=== PATIENT | female | born 1970 | race Caucasian/White ===

== ENCOUNTER 2023-06-03 05:53 | Inpatient (IN) | payer OTHER ==
[2023-05-30 14:24] LABS: HEMATOCRIT 44.7 % (36.0-45.00); HEMOGLOBIN 15.3 g/dL (12.0-15.00); MEAN CELL VOLUME 94.5 fL (80.00-100.00); MEAN CORPUSCULAR HEMOGLOBIN 32.3 pg (27.00-32.0); MEAN CORPUSCULAR HGB CONC 34.2 g/dl (32.0-36.0); PLATELET COUNT 226 K/uL (150-450); RED BLOOD COUNT 4.73 M/uL (4.00-6.00); RED CELL DISTRIBUTION WIDTH 12.8 % (11.5-14.5)
[2023-05-30 14:25] LABS: PH,URINE 5.5 (5.0-8.0); URINE APPEARANCE Clear; URINE BILIRRUBIN Negative (NEGATIVE); URINE BLOOD Negative; URINE COLOR Yellow; URINE GLUCOSE Negative (NEGATIVE); URINE LEUKOCYTE Small; URINE NITRATE Negative; URINE PROTEIN Negative (NEGATIVE); URINE UROBILINOGEN 0.2 E.U./dl
[2023-05-30 14:29] LABS: URINE BACTERIA 264.5 uL (0.0-1933); URINE EPITHELIAL CELLS 17.7 uL (0.0-38.8); URINE WBC 23.3 uL (0.0-23.2)
[2023-05-30 14:35] LABS: URINE RBC 1.5 uL (0.0-20.8)
[2023-05-30 14:49] LABS: ALBUMIN 4.1 gm/dL (3.4-5.0); BILIRUBIN TOTAL 0.42 mg/dL (0.3-1.2); CREATININE SERUM 0.66 mg/dL (0.55-1.02); GFR 93.33; GLOBULINA 3.3 G/DL (2.4-3.5); POTASSIUM 4.73 mEq/L (3.5-5.1); TOTAL PROTEIN 7.4 gm/dL (6.4-8.2)
[2023-05-30 15:06] LABS: INR 0.99; PARTIAL THROMBOPLASTIN TIME 27.2 SECONDS (22.0-34.0); PROTHROMBIN TIME 10.4 SECONDS (9.0-11.5)
[~2023-06-03] VITALS: Ht 152.4 cm; Wt 49.9 kg
[2023-06-04 07:47] LABS: HEMOGLOBIN 13.4 g/dL (12.0-15.00); MEAN CELL VOLUME 92.1 fL (80.00-100.00); MEAN CORPUSCULAR HEMOGLOBIN 31.7 pg (27.00-32.0); MEAN CORPUSCULAR HGB CONC 34.4 g/dl (32.0-36.0); PLATELET COUNT 149 K/uL (150-450); RED BLOOD COUNT 4.24 M/uL (4.00-6.00); RED CELL DISTRIBUTION WIDTH 12.6 % (11.5-14.5)
[2023-06-04 08:38] LABS: ALBUMIN 2.9 gm/dL (3.4-5.0); CALCIUM 8.7 mg/dL (8.5-10.1); CREATININE SERUM 0.66 mg/dL (0.55-1.02); GFR 93.33; MAGNESIUM 1.7 mg/dL (1.8-2.4); PHOSPHOROUS 3.6 mg/dL (2.5-4.9); POTASSIUM 4.45 mEq/L (3.5-5.1)
[2023-06-05 08:30] LABS: HEMATOCRIT 35.5 % (36.0-45.00); HEMOGLOBIN 12.1 g/dL (12.0-15.00); MEAN CELL VOLUME 93.6 fL (80.00-100.00); MEAN CORPUSCULAR HEMOGLOBIN 31.9 pg (27.00-32.0); MEAN CORPUSCULAR HGB CONC 34.1 g/dl (32.0-36.0); PLATELET COUNT 134 K/uL (150-450); RED BLOOD COUNT 3.79 M/uL (4.00-6.00); RED CELL DISTRIBUTION WIDTH 12.3 % (11.5-14.5)
[2023-06-05 08:50] LABS: CALCIUM 8.3 mg/dL (8.5-10.1); CREATININE SERUM 0.52 mg/dL (0.55-1.02); GFR 122.88; PHOSPHOROUS 2.7 mg/dL (2.5-4.9); POTASSIUM 4.1 mEq/L (3.5-5.1)
[2023-06-06 07:40] LABS: HEMATOCRIT 36.1 % (36.0-45.00); HEMOGLOBIN 12.1 g/dL (12.0-15.00); MEAN CELL VOLUME 94.8 fL (80.00-100.00); MEAN CORPUSCULAR HEMOGLOBIN 31.9 pg (27.00-32.0); MEAN CORPUSCULAR HGB CONC 33.6 g/dl (32.0-36.0); PLATELET COUNT 137 K/uL (150-450); RED CELL DISTRIBUTION WIDTH 12.3 % (11.5-14.5)
[2023-06-06 08:08] LABS: CALCIUM 8.7 mg/dL (8.5-10.1); CREATININE SERUM 0.5 mg/dL (0.55-1.02); GFR 128.57; PHOSPHOROUS 3.5 mg/dL (2.5-4.9); POTASSIUM 4.48 mEq/L (3.5-5.1)
[2023-06-06 09:19] LABS: MANUAL PLATELET COUNT 214
[2023-06-08] MEDS ORDERED: MIRALAX510 GM PO (15:37)
== END 2023-06-08 20:25 | disposition home or self-care (01) | DRG 330 ==
LOC: O/R 05:53 → SURH 05:53 → EDSTATUS 08:24 → SURH 08:25 → CIR.AMB 13:17 → SURH 13:44
PROVIDERS: Internal Medicine Geriatric Medicine; ADMIT Surgery; ATTEND Surgery
PROC: 07BB4ZZ Excision of Mesenteric Lymphatic, Percutaneous Endoscopic Approach (ICD-10-PCS; 2023-06-03)
PROC: 0DJD8ZZ Inspection of Lower Intestinal Tract, Via Natural or Artificial Opening Endoscopic (ICD-10-PCS; 2023-06-03)
PROC: 3E0F7SF Introduction of Other Gas into Respiratory Tract, Via Natural or Artificial Opening (ICD-10-PCS; 2023-06-03)
PROC: 0DTG4ZZ Resection of Left Large Intestine, Percutaneous Endoscopic Approach (ICD-10-PCS; principal; 2023-06-03 15:15)
PROC: 4A12X4Z Monitoring of Cardiac Electrical Activity, External Approach (ICD-10-PCS; 2023-06-05)
DX: C18.6 Malignant neoplasm of descending colon (principal); C18.5 Malignant neoplasm of splenic flexure; K62.5 Hemorrhage of anus and rectum; R59.0 Localized enlarged lymph nodes; F41.9 Anxiety disorder, unspecified; Z71.51 Drug abuse counseling and surveillance of drug abuser

== ENCOUNTER 2025-06-16 02:09 | Emergency (ER) | payer OTHER ==
[~2025-06-16] VITALS: Ht 154.9 cm; Wt 57.6 kg
[~2025-06-16 02:09] MED LIST: MIRALAX510 GM PO
[2025-06-16] MEDS ORDERED: MORPHINE SULFATE 4 MG/ML CARTRIDGE IV STA ×2 (03:54→07:25)
[2025-06-16] MEDS ORDERED: 0.9 % SODIUM CHLORIDE 1,000 ML IV ONE (07:45)
[2025-06-16] MEDS ORDERED: ONDANSETRON HCL 4 MG in DEXTROSE 5 % IN WATER 50 ML IV PRN (07:45)
[2025-06-16] MEDS ORDERED: MORPHINE SULFATE 4 MG/ML VIAL IV PRN (07:45)
[2025-06-16 07:57] LABS: BASO % 0.2 % (0.1-1.2); EOS # 0.05 (0.04-0.54); EOS % 0.5 % (0.7-7.0); LYMPH # 2.48 (1.18-3.74); LYMPH % 22.5 % (19.3-53.1); MEAN PLATELET VOLUME 12.80 fl (9.4-12.4); MONO # 0.55 (0.24-0.82); MONO % 5.0 % (4.7-12.5); NEUT # 7.86 (1.56-6.13); NEUT % 71.3 % (34.0-71.1); RED CELL DISTRIBUTION WIDTH 12.2 % (11.6-14.4)
[2025-06-16] MEDS ORDERED: FAMOTIDINE/PF 20 MG/2 ML VIAL ONE (08:21)
[2025-06-16 08:26] LABS: INR 0.95
[2025-06-16 08:30] LABS: BUN CREA RATIO 19.0 (7.0-25.0); CREATININE SERUM 0.78 mg/dL (0.55-1.02); GFR 76.4; GLUCOSE FASTING 108.0 mg/dL (65-100); OSMOLALITY SERUM 286.0 MOSM/KG (275-295)
[2025-06-16 09:00] LABS: COL EPI 96 SECONDS (82-175)
[2025-06-16] MEDS ORDERED: FAMOTIDINE/PF 20 MG/2 ML VIAL IV SCH (09:00)
[2025-06-16 10:10] LABS: URINE APPEARANCE Clear; URINE BILIRRUBIN Negative (NEGATIVE); URINE BLOOD Negative; URINE COLOR Yellow; URINE GLUCOSE Negative (NEGATIVE); URINE KETONE Trace (NEGATIVE); URINE LEUKOCYTE Trace; URINE NITRATE Negative; URINE PROTEIN Negative (NEGATIVE); URINE UROBILINOGEN 0.2 E.U./dl
[2025-06-16 10:16] LABS: URINE BACTERIA 463.1 uL (0.0-1933); URINE EPITHELIAL CELLS 12.8 uL (0.0-38.8); URINE WBC 10.7 uL (0.0-23.2)
[2025-06-16] MEDS ORDERED: TRAMADOL HCL E100 M1 PO (10:37)
[2025-06-16 10:42] LABS: URINE CAST 0.00 uL (0.0-1.40); URINE RBC 0.5 uL (0.0-20.8)
[2025-06-16] MEDS ORDERED: TRAMADOL HCL 50 MG TABLET PO ONE (12:00)
== END 2025-06-16 12:08 | disposition home or self-care (01) ==
LOC: ER 02:09
PROVIDERS: General Practice
DX: M25.571 Pain in right ankle and joints of right foot (principal); M79.604 Pain in right leg; Z88.6 Allergy status to analgesic agent; Z88.8 Allergy status to other drugs, medicaments and biological substances

== ENCOUNTER 2025-06-18 09:50 | Emergency (ER) | payer OTHER ==
[~2025-06-18] VITALS: Ht 152.4 cm; Wt 58.1 kg
[~2025-06-18 09:50] MED LIST changes: +TRAMADOL HCL E100 M1 PO
[2025-06-18] MEDS ORDERED: FAMOTIDINE/PF 20 MG/2 ML VIAL IV ONE (10:15)
[2025-06-18] MEDS ORDERED: ONDANSETRON HCL 4 MG in DEXTROSE 5 % IN WATER 50 ML IV PRN (10:15)
[2025-06-18] MEDS ORDERED: MORPHINE SULFATE 4 MG/ML VIAL IV PRN (10:15)
[2025-06-18] MEDS ORDERED: 0.9 % SODIUM CHLORIDE 1,000 ML IV SCH (10:15)
[2025-06-18] MEDS ORDERED: ONDANSETRON HCL 2 MG/ML VIAL ONE (10:35)
[2025-06-18] MEDS ORDERED: FAMOTIDINE/PF 20 MG/2 ML VIAL ONE ×2 (10:35→10:38)
[2025-06-18 11:20] LABS: BASO % 0.2 % (0.1-1.2); EOS # 0.20 (0.04-0.54); EOS % 2.5 % (0.7-7.0); LYMPH # 2.53 (1.18-3.74); LYMPH % 31.4 % (19.3-53.1); MEAN PLATELET VOLUME 12.90 fl (9.4-12.4); MONO # 0.53 (0.24-0.82); MONO % 6.6 % (4.7-12.5); NEUT # 4.77 (1.56-6.13); NEUT % 59.1 % (34.0-71.1); RED CELL DISTRIBUTION WIDTH 11.9 % (11.6-14.4)
[2025-06-18 11:35] LABS: URINE APPEARANCE Clear; URINE BACTERIA 185.2 uL (0.0-1933); URINE BILIRRUBIN Negative (NEGATIVE); URINE BLOOD Negative; URINE COLOR Yellow; URINE EPITHELIAL CELLS 16.0 uL (0.0-38.8); URINE GLUCOSE Negative (NEGATIVE); URINE KETONE Trace (NEGATIVE); URINE LEUKOCYTE Trace; URINE NITRATE Negative; URINE PROTEIN Negative (NEGATIVE); URINE UROBILINOGEN 0.2 E.U./dl; URINE WBC 11.3 uL (0.0-23.2)
[2025-06-18 11:45] LABS: ALT/SGPT 23.0 U/L (12-78); AST/SGOT 16.0 U/L (15-37); BILIRUBIN TOTAL 0.81 mg/dL (0.3-1.2); BUN CREA RATIO 18.0 (7.0-25.0); CREATININE SERUM 0.67 mg/dL (0.55-1.02); GFR 91.05; GLOBULINA 3.3 G/DL (2.4-3.5); GLUCOSE FASTING 102.0 mg/dL (65-100); OSMOLALITY SERUM 281.0 MOSM/KG (275-295)
[2025-06-18 11:49] LABS: INR 0.98
[2025-06-18 11:52] LABS: URINE CAST 0.00 uL (0.0-1.40); URINE RBC 1.9 uL (0.0-20.8)
== END 2025-06-18 13:08 | disposition home or self-care (01) ==
LOC: ER 09:51
PROVIDERS: General Practice
DX: S82.891A Other fracture of right lower leg, initial encounter for closed fracture (principal); X58.XXXA Exposure to other specified factors, initial encounter; Y93.89 Activity, other specified; Y92.89 Other specified places as the place of occurrence of the external cause; Y99.8 Other external cause status; Z88.6 Allergy status to analgesic agent; Z88.8 Allergy status to other drugs, medicaments and biological substances
CPT/HCPCS: 36415; 71045; 73610; 93005; 96365; 96366; 99283; J2270; J2405; J3490; J7030

== ENCOUNTER 2025-06-20 08:33 | Inpatient (IN) | payer OTHER ==
[~2025-06-20] VITALS: Ht 165.1 cm; Wt 81.6 kg
--- NOTE | 2025-06-20 08:47 | NUR ---
PACIENTE ALERTA Y ORIENTADA X 3 REFIERE CAIDA EL SABADO EN LA NOCHE. PRESENTA REFERIDO DEL DR GRUBBS PARA OPERACION POR FRACTURA EN TOBILLO DERECHO. SE MIDEN SIGNOS VITALES Y SE UBICA
[2025-06-20] MEDS ORDERED: FAMOTIDINE/PF 20 MG/2 ML VIAL IV STA (10:18)
[2025-06-20] MEDS ORDERED: 0.9 % SODIUM CHLORIDE 1,000 ML IV STA (10:18)
[2025-06-20] MEDS ORDERED: ONDANSETRON HCL 2 MG/ML VIAL IV STA (10:18)
[2025-06-20] MEDS ORDERED: MORPHINE SULFATE 4 MG/ML VIAL IV ONE (10:30)
[2025-06-20] MEDS ORDERED: ENOXAPARIN SODIUM 40 MG/0.4 ML SYRINGE SUBCUTANEO SCH (10:42)
[2025-06-20] MEDS ORDERED: ENOXAPARIN SODIUM 40 MG/0.4 ML SYRINGE SUBCUTANEO ONE (10:42)
[2025-06-20] MEDS ORDERED: ONDANSETRON HCL 2 MG/ML VIAL IV PRN (10:45)
[2025-06-20] MEDS ORDERED: MORPHINE SULFATE 4 MG/ML CARTRIDGE IV PRN (10:45)
[2025-06-20] MEDS ORDERED: ONDANSETRON HCL 2 MG/ML VIAL ONE (11:55)
[2025-06-20] MEDS ORDERED: FAMOTIDINE/PF 20 MG/2 ML VIAL ONE (11:55)
--- NOTE | 2025-06-20 12:28 | NUR ---
SE EDUCA A PACIENTE SOBRE TRATAMIENTO MEDICO EL CUAL REFIERE ENTENDER, SE REALIZA ADMINISTRACION DE MEDICAMENTOS ANNABEL ORDEN MEDICA Y BAJO MEDIDAS ASEPTICAS. PENDIENTE PROCESAR ADMISION.
[2025-06-20 18:06] VITALS: BP 128/77; O2SAT 99
[2025-06-21 00:40] VITALS: BP 106/64; O2SAT 98
[2025-06-21 08:00] VITALS: BP 131/73; O2SAT 100
[2025-06-21] MEDS ORDERED: PANTOPRAZOLE SODIUM 40 MG TABLET.DR PO SCH (09:00)
[2025-06-21] MEDS ORDERED: CEFAZOLIN SODIUM 1,000 MG VIAL ONE (09:47)
[2025-06-21] MEDS ORDERED: DUI500 PO (13:04)
[2025-06-21] MEDS ORDERED: ONDANSETRON HCL 2 MG/ML VIAL IV PRN (13:15)
[2025-06-21] MEDS ORDERED: TRAMADOL HCL 50 MG TABLET PO PRN (13:15)
[2025-06-21] MEDS ORDERED: ONDANSETRON 4 MG TAB.RAPDIS PO PRN (13:15)
[2025-06-21] MEDS ORDERED: PROMETHAZINE HCL 50 MG/ML AMPUL IM PRN (13:15)
[2025-06-21] MEDS ORDERED: SODIUM CHLORIDE 0.45 % 1,000 ML IV SCH (13:15)
[2025-06-21 16:53] VITALS: BP 134/87; O2SAT 100
[2025-06-21] MEDS ORDERED: ACETAMINOPHEN 325 MG TABLET PO SCH (17:00)
[2025-06-21] MEDS ORDERED: CEFAZOLIN SODIUM 1,000 MG VIAL IV SCH (17:00)
[2025-06-22] MEDS ORDERED: RIVAROXABAN 10 MG TAB PO SCH (09:00)
== END 2025-06-21 22:16 | disposition home or self-care (01) | DRG 494 ==
LOC: ER 08:34 → SURH 10:40
PROVIDERS: ADMIT Internal Medicine; ATTEND Internal Medicine
PROC: 0QSG04Z Reposition Right Tibia with Internal Fixation Device, Open Approach (ICD-10-PCS; principal; 2025-06-20)
PROC: 0QSJ04Z Reposition Right Fibula with Internal Fixation Device, Open Approach (ICD-10-PCS; 2025-06-20)
PROC: 0SQF0ZZ Repair Right Ankle Joint, Open Approach (ICD-10-PCS; 2025-06-20)
DX: S82.851B Displaced trimalleolar fracture of right lower leg, initial encounter for open fracture type I or II (principal); S82.51XB Displaced fracture of medial malleolus of right tibia, initial encounter for open fracture type I or II; S82.61XB Displaced fracture of lateral malleolus of right fibula, initial encounter for open fracture type I or II